=== PATIENT | female | born 1950 | race Asian ===

== ENCOUNTER 2018-01-05 07:32 | Day surgery (SDC) | payer OTHER ==
[2018-01-05] MEDS ORDERED: PROPOFOL 40 ML (09:01)
[2018-01-05] MEDS ORDERED: LIDOCAINE 2% (SDV) 5 ML INJ (09:01)
== END 2018-01-05 11:37 | disposition home or self-care (01) ==
LOC: GIL 07:32
DX: Z12.11 Encounter for screening for malignant neoplasm of colon (principal); K64.4 Residual hemorrhoidal skin tags; I10 Essential (primary) hypertension
CPT/HCPCS: 45378